=== PATIENT | female | born 1945 | race Two or more races ===

== ENCOUNTER 2017-02-23 14:44 | Emergency (ER) | payer OTHER ==
[~2017-02-23] VITALS: Ht 162.6 cm; Wt 65.8 kg
--- NOTE | 2017-02-23 14:50 | NUR ---
BBLAPD: OK TO BOOK. 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 PT PUT ON MONITOR, WAITING FOR MD CANO.
--- NOTE | 2017-02-23 15:53 | NUR ---
pt refused blood sugar check, md aware.
--- NOTE | 2017-02-23 16:20 | NUR ---
REFUSE TYLENOL AND ACCU CHECK,DR LEIGH AWARE, WAITING FOR ACI
[2017-02-23] MEDS ORDERED: ACETAMINOPHEN 325 MG TABLET ONE (16:22)
[2017-02-23] MEDS: ACETAMINOPHEN 325 MG TABLET PO ONE (16:25)
[2017-02-23 17:14] VITALS: BP 127/70
--- NOTE | 2017-02-23 17:20 | NUR ---
Patient discharged to home in stable condition. Written and verbal after care instructions given. Patient verbalizes understanding of instruction.
== END 2017-02-23 17:21 ==
LOC: ER 14:47 → EDSEX 14:47 → EDBD 14:47 → ER 17:21
DX: R53.1 Weakness (principal); Z86.73 Personal history of transient ischemic attack (TIA), and cerebral infarction without residual deficits
CPT/HCPCS: 70450-TC

== ENCOUNTER 2021-07-12 18:40 | Emergency (ER) | payer MEDICARE, OTHER ==
[~2021-07-12] VITALS: Ht 162.6 cm; Wt 86.6 kg
--- NOTE | 2021-07-12 18:49 | NUR ---
To ER bed 11, LILLIANA HIGHTOWER "Had Stent placed 1wk ago. Since then been having pain/hematuria, aaox3, breathing even and non labored, connected to monitor, awaiting md orders
[2021-07-12] MEDS ORDERED: HYDROMORPHONE INJ 2 MG/ML DISP.SYRIN IV ONE (19:00)
--- NOTE | 2021-07-12 19:00 | NUR ---
SALINE LOCK ESTABLISHED, BLOOD DRAWN AND SENT TO LAB
[2021-07-12] MEDS ORDERED: HYDROMORPHONE 1 MG/1 ML DISP.SYRIN ONE (19:04)
--- NOTE | 2021-07-12 20:15 | NUR ---
PT RETURNED FROM CT
[2021-07-12 20:19] LABS: COLOR,URINE RED (YELLOW)
[2021-07-12 20:26] LABS: RBC,URINE TOO NUMEROUS TO COUN /HPF (0-2)
[2021-07-12 20:27] LABS: BACTERIA,URINE 2+ /HPF (None Seen); SQUAMOUS EPITHELIAL CELL,UR 0-2 /HPF (None Seen)
--- NOTE | 2021-07-12 20:42 | NUR ---
CALLED LAB FOR BLOOD WORK RESULTS
[2021-07-12 20:43] LABS: BASOPHILS # (AUTO) 0.1 K/uL (0.0-0.2); BASOPHILS % (AUTO) 0.4 % (0.0-2.0); EOSINOPHILS % (AUTO) 2.8 % (0.0-6.0); HEMATOCRIT 27 % (33-45); HEMOGLOBIN 8.6 g/dL (11.5-14.8); LYMPHOCYTES # (AUTO) 1.5 K/uL (0.8-4.8); LYMPHOCYTES % (AUTO) 10.4 % (20.0-44.0); MEAN CORPUSCULAR HGB CONC 32 g/dl (31.0-36.0); MEAN CORPUSCULAR VOLUME 71 fL (82-100); MONOCYTES # (AUTO) 0.7 K/uL (0.1-1.30); MONOCYTES % (AUTO) 4.7 % (2.0-12.0); NEUTROPHILS # (AUTO) 12.1 K/uL (1.8-8.9); NEUTROPHILS % (AUTO) 81.7 % (43.0-81.0); PLATELET COUNT (AUTO) 487 K/uL (150-450); RED BLOOD CELL COUNT(AUTO) 3.73 MIL/uL (4.0-5.2); WHITE BLOOD COUNT (AUTO) 14.8 K/uL (4.3-11.0)
[2021-07-12] MEDS ORDERED: CEFTRIAXONE 1GM BAG (ER ONLY) 50 ML IV ONE (20:58)
[2021-07-12] MEDS ORDERED: CEFTRIAXONE 1GM BAG (ER ONLY) 1 GM/50 ML PIGGYBACK IV ONE (21:00)
--- NOTE | 2021-07-12 21:00 | NUR ---
ADDENDUM: Intravenous End Time Documentation: Rocephin 1 gram IVPB: start time:2100 pm; end time: 2130 pm IV site: PIV # 20 Port # 1
[2021-07-12 21:40] LABS: ALBUMIN 3.1 g/dL (3.4-5.0); BILIRUBIN,TOTAL 0.2 mg/dL (0.2-1.0); CALCIUM, SERUM 8.4 mg/dL (8.5-10.1); CREATININE 1.1 mg/dL (0.6-1.3); POTASSIUM 3.6 mmol/L (3.5-5.1); TOTAL PROTEIN, SERUM 6.8 g/dL (6.4-8.2)
[2021-07-12] MEDS ORDERED: ONDANSETRON HCL/PF 4 MG/2 ML VIAL ONE (21:42)
[2021-07-12] MEDS ORDERED: ONDANSETRON HCL/PF - ER 4 MG/2 ML VIAL IV ONE (22:00)
[2021-07-12] MEDS ORDERED: CIPR-262 PO (22:03)
[2021-07-12 22:21] LABS: BAND % (MANUAL) 3 % (0.0-5.0); EOSINOPHILS % (MANUAL) 3 % (0-4); LYMPHOCYTES % (MANUAL) 14 % (16-48); MONOCYTES % (MANUAL) 2 % (0-11.0); NEUTROPHILS % (MANUAL) 78 (42-76)
[2021-07-12 22:25] VITALS: BP 145/70
--- NOTE | 2021-07-12 22:25 | NUR ---
Patient discharged to home in stable condition. Written and verbal after care instructions given. Patient verbalizes understanding of instruction.
[2021-07-13] MEDS ORDERED: PHEN-705 PO (23:15)
== END 2021-07-12 22:25 | disposition home or self-care (01) ==
LOC: ER 18:44
DX: K76.89 Other specified diseases of liver (principal); D72.829 Elevated white blood cell count, unspecified; N12 Tubulo-interstitial nephritis, not specified as acute or chronic; R10.9 Unspecified abdominal pain; E03.9 Hypothyroidism, unspecified; Z60.2 Problems related to living alone; Z79.899 Other long term (current) drug therapy
CPT/HCPCS: 36415; 74176; 80048; 80076; 81001; 83690; 85007; 85025; 87086; 96374; 96375 ×2; 99284; J0696; J1170; J2405

== ENCOUNTER 2021-07-13 22:45 | Emergency (ER) | payer MEDICARE, OTHER ==
[~2021-07-13] VITALS: Ht 162.6 cm; Wt 86.6 kg
[~2021-07-13 22:45] MED LIST: CIPR-262 PO
[2021-07-13 22:50] VITALS: BP 123/80
[2021-07-13] MEDS ORDERED: PHEN-705 PO (23:15)
--- NOTE | 2021-07-13 23:21 | NUR ---
Patient discharged to home in stable condition. Written and verbal after care instructions given. Patient verbalizes understanding of instruction.
[2021-07-13] MEDS ORDERED: HYDROCODONE/APAP 5/325MG TABLET PO ONE (23:30)
== END 2021-07-13 23:31 | disposition home or self-care (01) ==
LOC: ER 22:47
DX: G89.29 Other chronic pain (principal); Z76.5 Malingerer [conscious simulation]; Z79.899 Other long term (current) drug therapy